=== PATIENT | female | born 1950 | race Two or more races ===

== ENCOUNTER 2017-10-05 09:29 | Outpatient (CLI) | payer OTHER ==
[~2017-10-05] VITALS: Ht 157.5 cm; Wt 93.4 kg
== END 2017-10-05 09:45 | disposition home or self-care (01) ==
LOC: OFIC 805 09:29
DX: H91.8X3 Other specified hearing loss, bilateral (principal); H61.23 Impacted cerumen, bilateral

== ENCOUNTER 2018-03-16 08:25 | Outpatient (CLI) | payer OTHER | END 2018-03-16 08:45 | disposition home or self-care (01) | LOC: OFIC 805 08:25 | DX: H90.3 Sensorineural hearing loss, bilateral (principal); H69.83 Other specified disorders of Eustachian tube, bilateral ==

== ENCOUNTER 2022-07-06 10:47 | Emergency (ER) | payer OTHER ==
[~2022-07-06] VITALS: Ht 157.5 cm; Wt 82.1 kg
[2022-07-06] MEDS ORDERED: GABAPENTIN300 M2 PO (11:01)
[2022-07-06] MEDS ORDERED: ATORVASTATIN CA40 MG PO (11:01)
[2022-07-06] MEDS ORDERED: LOSARTAN-HCTZ1 EAC1 PO (11:01)
== END 2022-07-06 13:43 | disposition home or self-care (01) ==
LOC: ER 10:47
DX: M94.0 Chondrocostal junction syndrome [Tietze] (principal); V49.9XXA Car occupant (driver) (passenger) injured in unspecified traffic accident, initial encounter; Y93.9 Activity, unspecified; Y92.9 Unspecified place or not applicable

== ENCOUNTER 2023-07-20 09:44 | Emergency (ER) | payer OTHER ==
[~2023-07-20] VITALS: Ht 157.5 cm; Wt 4.5 kg
[~2023-07-20 09:44] MED LIST: ATORVASTATIN CA40 MG PO; GABAPENTIN300 M2 PO; LOSARTAN-HCTZ1 EAC1 PO
[2023-07-20] MEDS ORDERED: CIPRO500 MG PO (12:37)
== END 2023-07-20 13:01 | disposition home or self-care (01) ==
LOC: ER 09:44
DX: S51.021A Laceration with foreign body of right elbow, initial encounter (principal); W18.39XA Other fall on same level, initial encounter; Y93.89 Activity, other specified; Y92.89 Other specified places as the place of occurrence of the external cause; Z88.0 Allergy status to penicillin; M25.562 Pain in left knee

== ENCOUNTER 2023-09-30 10:45 | Outpatient (CLI) | payer OTHER ==
[~2023-09-30 10:45] MED LIST changes: +CIPRO500 MG PO
== END 2023-09-30 10:46 | disposition home or self-care (01) ==
LOC: NUCLEAR 10:45
PROVIDERS: ATTEND Internal Medicine Cardiovascular Disease
DX: I10 Essential (primary) hypertension (principal); I25.10 Atherosclerotic heart disease of native coronary artery without angina pectoris